=== PATIENT | male | born 1980 | race Caucasian/White ===

== ENCOUNTER 2022-12-17 22:27 | Emergency (ER) | payer SELFPAY ==
[~2022-12-17] VITALS: Ht 154.9 cm; Wt 92.5 kg
[2022-12-17 22:35] VITALS: BP 145/99; PULSE 71; RESP 18; TEMP 98; O2SAT 100
--- NOTE | 2022-12-17 22:40 | NUR ---
PT TAKEN TO BED 1
[2022-12-17 23:09] LABS: BASOPHILS # (AUTO) 0.1 K/uL (0.00-0.22); BASOPHILS % (AUTO) 0.8 % (0.0-2.0); EOSINOPHILS # (AUTO) 0.3 K/uL (0-0.4); HEMATOCRIT 40.1 % (36-52); HEMOGLOBIN 13.5 g/dL (12.0-18.0); LYMPHOCYTES # (AUTO) 2.7 K/uL (2.0-11.5); LYMPHOCYTES % (AUTO) 27.8 % (20.5-51.1); MEAN CORPUSCULAR HEMOGLOBIN 30 pg (27-31); MEAN CORPUSCULAR HGB CONC 34 g/dL (33-37); MEAN CORPUSCULAR VOLUME 89.2 fL (80-94); MONOCYTES # (AUTO) 0.8 K/uL (0.8-1.0); MONOCYTES % (AUTO) 8.3 % (1.7-9.3); NEUTROPHILS # (AUTO) 5.9 K/uL (1.8-7.7); NEUTROPHILS % (AUTO) 60.1 % (42.2-75.2); PLATELET COUNT (AUTO) 303 K/uL (140-450); WHITE BLOOD COUNT (AUTO) 9.8 K/uL (4.8-10.8)
[2022-12-17 23:20] LABS: ALBUMIN 3.6 g/dL (3.4-5.0); ANION GAP 13.6 (8-16); ASPARTATE AMINOTRANSFERASE 26 U/L (15-37); CARBON DIOXIDE 25.6 mmol/L (21-32); CHLORIDE 106 mmol/L (98-107); CREATININE 0.9 mg/dL (0.6-1.3); GFR ARICAN-AMERICAN 120 mL/min (>90); GLUCOSE 133 mg/dL (74-106); POTASSIUM 3.2 mmol/L (3.5-5.1); SODIUM SERUM 142 mmol/L (136-145); TOTAL BILIRUBIN 0.3 mg/dL (0.0-1.0); UREA NITROGEN, BLOOD 14 mg/dL (7-18)
--- NOTE | 2022-12-17 23:24 | NUR ---
Patient is a 42/M who came in due to several months history of left-sided chest pain radiating to left shoulder, 01/21, heaviness. Patient denies shortness of breath, fever/chills, abdominal pain, nausea/vomiting/diarrhea. PMHx: HTN NKA
--- NOTE | 2022-12-17 23:56 | NUR ---
DOMINICKD examining patient.
[2022-12-18 00:41] VITALS: BP 112/76; PULSE 76; RESP 18; TEMP 97.5; O2SAT 99
--- NOTE | 2022-12-18 00:41 | NUR ---
Patient discharged with v/s stable. Written and verbal after care instructions given and explained. Patient verbalized understanding. Ambulatory with steady gait. All questions addressed prior to discharge. Advised to follow up with PMD.
== END 2022-12-18 00:41 | disposition home or self-care (01) ==
LOC: MED 22:27
DX: R07.89 Other chest pain (principal)
CPT/HCPCS: 36415; 71045; 80053; 84484; 85025; 93005; 99285

== ENCOUNTER 2023-01-08 03:12 | Emergency (ER) | payer MEDICAID ==
[~2023-01-08] VITALS: Ht 165.1 cm; Wt 90.7 kg
[2023-01-08 03:12] VITALS: BP 137/80; PULSE 65; RESP 16; TEMP 98; O2SAT 98
[2023-01-08] MEDS ORDERED: LORazepam 1 MG TAB PO ONE (03:45)
[2023-01-08] MEDS ORDERED: ASPIRIN 325 MG TAB PO ONE (03:45)
[2023-01-08 04:00] LABS: BASOPHILS # (AUTO) 0.1 K/uL (0.00-0.22); BASOPHILS % (AUTO) 0.5 % (0.0-2.0); EOSINOPHILS # (AUTO) 0.5 K/uL (0-0.4); HEMATOCRIT 40.8 % (36-52); HEMOGLOBIN 13.8 g/dL (12.0-18.0); LYMPHOCYTES # (AUTO) 2.6 K/uL (2.0-11.5); MEAN CORPUSCULAR HEMOGLOBIN 30 pg (27-31); MEAN CORPUSCULAR HGB CONC 34 g/dL (33-37); MEAN CORPUSCULAR VOLUME 89.1 fL (80-94); MONOCYTES # (AUTO) 0.9 K/uL (0.8-1.0); NEUTROPHILS # (AUTO) 5.7 K/uL (1.8-7.7); NEUTROPHILS % (AUTO) 58.5 % (42.2-75.2); PLATELET COUNT (AUTO) 310 K/uL (140-450); RED BLOOD CELL COUNT(AUTO) 4.57 MIL/uL (4.20-6.10); RED CELL DISTRIBUTION WIDTH 13.6 % (11.6-13.7); WHITE BLOOD COUNT (AUTO) 9.8 K/uL (4.8-10.8)
[2023-01-08 04:23] LABS: ALANINE AMINOTRANSFERASE 37 U/L (12-78); ALBUMIN 3.3 g/dL (3.4-5.0); ALKALINE PHOSPHATASE 138 U/L (50-136); ASPARTATE AMINOTRANSFERASE 17 U/L (15-37); GFR ARICAN-AMERICAN 106 mL/min (>90); GFR NON ARICAN-AMERICAN 88 mL/min (>90); GLUCOSE 118 mg/dL (74-106); LIPASE 84 U/L (73-393); TOTAL BILIRUBIN 0.2 mg/dL (0.0-1.0); TOTAL PROTEIN, SERUM 6.7 g/dL (6.4-8.2); UREA NITROGEN, BLOOD 12 mg/dL (7-18)
[2023-01-08 04:26] LABS: ANION GAP 9.5 (8-16); CHLORIDE 106 mmol/L (98-107); POTASSIUM 3.5 mmol/L (3.5-5.1); SODIUM SERUM 139 mmol/L (136-145)
[2023-01-08 04:43] LABS: AMPHETAMINE, URINE NEGATIVE ng/ml (NEG <=1000); BARBITURATE, URINE NEGATIVE ng/ml (NEG <=200); BENZODIAZEPINE, URINE NEGATIVE ng/mL (NEG <=200); CANNABINOID, URINE NEGATIVE ng/mL (NEG <=50); COCAINE, URINE NEGATIVE ng/mL (NEG <=300); OPIATE, URINE NEGATIVE ng/mL (NEG <=2000); PHENCYCLIDINE SCREEN,URINE NEGATIVE ng/mL (NEG <=25)
[2023-01-08] MEDS ORDERED: NAPR-54 PO (05:33)
[2023-01-08] MEDS ORDERED: KETOROLAC 30 MG/ML VIAL IM ONE (05:35)
[2023-01-08 05:50] VITALS: BP 127/85; PULSE 76; RESP 20; TEMP 98; O2SAT 98
== END 2023-01-08 05:50 | disposition home or self-care (01) ==
LOC: MED 03:12
DX: R07.89 Other chest pain (principal); I10 Essential (primary) hypertension; Z79.899 Other long term (current) drug therapy
CPT/HCPCS: 36415; 71045; 80053; 80305; 83690; 84484; 85025; 93005; 96372; 99285; J1885

== ENCOUNTER 2023-01-30 19:29 | Emergency (ER) | payer MEDICAID ==
[~2023-01-30] VITALS: Ht 172.7 cm; Wt 90.7 kg
[~2023-01-30 19:29] MED LIST: NAPR-54 PO
[2023-01-30 20:01] VITALS: BP 144/103; PULSE 70; RESP 20; TEMP 98.3; O2SAT 98
[2023-01-31] MEDS ORDERED: ACET-10509 PO (06:29)
== END 2023-01-30 22:47 | disposition left against medical advice (07) ==
LOC: MED 19:29
DX: R07.9 Chest pain, unspecified (principal); Z53.21 Procedure and treatment not carried out due to patient leaving prior to being seen by health care provider
CPT/HCPCS: 93005; 99281

== ENCOUNTER 2023-01-31 01:35 | Emergency (ER) | payer MEDICAID ==
[~2023-01-31] VITALS: Ht 162.6 cm; Wt 90.7 kg
[2023-01-31 01:47] VITALS: BP 123/82; PULSE 71; RESP 18; TEMP 97.9; O2SAT 99
[2023-01-31 02:14] LABS: BASOPHILS # (AUTO) 0.1 K/uL (0.00-0.22); BASOPHILS % (AUTO) 0.7 % (0.0-2.0); EOSINOPHILS # (AUTO) 0.3 K/uL (0-0.4); EOSINOPHILS % (AUTO) 2.9 % (0.0-4.0); HEMOGLOBIN 14.6 g/dL (12.0-18.0); LYMPHOCYTES # (AUTO) 2.4 K/uL (2.0-11.5); LYMPHOCYTES % (AUTO) 21.1 % (20.5-51.1); MEAN CORPUSCULAR HEMOGLOBIN 30 pg (27-31); MEAN CORPUSCULAR HGB CONC 33 g/dL (33-37); MEAN CORPUSCULAR VOLUME 89.7 fL (80-94); MONOCYTES % (AUTO) 8.8 % (1.7-9.3); NEUTROPHILS # (AUTO) 7.5 K/uL (1.8-7.7); NEUTROPHILS % (AUTO) 66.5 % (42.2-75.2); PLATELET COUNT (AUTO) 325 K/uL (140-450); RED CELL DISTRIBUTION WIDTH 13.5 % (11.6-13.7); WHITE BLOOD COUNT (AUTO) 11.2 K/uL (4.8-10.8)
[2023-01-31 02:37] LABS: ALANINE AMINOTRANSFERASE 39 U/L (12-78); ALKALINE PHOSPHATASE 130 U/L (50-136); ANION GAP 13.2 (8-16); ASPARTATE AMINOTRANSFERASE 19 U/L (15-37); CARBON DIOXIDE 27.3 mmol/L (21-32); CHLORIDE 104 mmol/L (98-107); CREATININE 0.9 mg/dL (0.6-1.3); GFR ARICAN-AMERICAN 120 mL/min (>90); GFR NON ARICAN-AMERICAN 99 mL/min (>90); GLUCOSE 133 mg/dL (74-106); LIPASE 79 U/L (73-393); POTASSIUM 3.5 mmol/L (3.5-5.1); SODIUM SERUM 141 mmol/L (136-145); TOTAL BILIRUBIN 0.3 mg/dL (0.0-1.0); TOTAL PROTEIN, SERUM 7.7 g/dL (6.4-8.2); UREA NITROGEN, BLOOD 16 mg/dL (7-18)
[2023-01-31] MEDS ORDERED: ACET-10509 PO (06:29)
[2023-01-31] MEDS ORDERED: KETOROLAC 30 MG/ML VIAL IM ONE (06:30)
[2023-01-31 06:59] VITALS: O2SAT 99
[2023-01-31 07:00] VITALS: BP 131/89; PULSE 72; RESP 17
[2023-01-31 07:40] VITALS: O2SAT 98
== END 2023-01-31 09:04 | disposition home or self-care (01) ==
LOC: MED 01:35
DX: R07.9 Chest pain, unspecified (principal); I10 Essential (primary) hypertension; Z79.899 Other long term (current) drug therapy
CPT/HCPCS: 36415; 71045; 80053; 83690; 84484; 85025; 93005; 96372; 99285; J1885

== ENCOUNTER 2023-02-02 22:02 | Emergency (ER) | payer MEDICAID ==
[~2023-02-02] VITALS: Ht 160 cm; Wt 90.7 kg
[~2023-02-02 22:02] MED LIST changes: +ACET-10509 PO
[2023-02-02 22:15] VITALS: BP 135/71; PULSE 63; RESP 16; TEMP 97.4; O2SAT 98
[2023-02-02] MEDS ORDERED: KETOROLAC 30 MG/ML VIAL IM ONE (23:10)
[2023-02-02 23:27] VITALS: BP 135/71; PULSE 63; RESP 16; TEMP 97.4; O2SAT 98
== END 2023-02-02 23:27 | disposition home or self-care (01) ==
LOC: MED 22:02
DX: R07.89 Other chest pain (principal); I10 Essential (primary) hypertension; Z79.899 Other long term (current) drug therapy
CPT/HCPCS: 93005; 96372; 99283; J1885

== ENCOUNTER 2023-02-09 02:25 | Emergency (ER) | payer MEDICAID ==
[~2023-02-09] VITALS: Ht 162.6 cm; Wt 90.7 kg
[2023-02-09 02:40] VITALS: BP 149/85; PULSE 68; RESP 17; TEMP 98.1; O2SAT 97
[2023-02-09] MEDS ORDERED: KETOROLAC 30 MG/ML VIAL IM ONE (03:10)
[2023-02-09] MEDS ORDERED: LIDOCAINE 5% 1 EA PATCH TP ONE (03:30)
[2023-02-09] MEDS ORDERED: LID5T TP (03:42)
[2023-02-09] MEDS ORDERED: IBUP-2213 PO (03:42)
[2023-02-09 04:00] VITALS: BP 142/86; PULSE 64; RESP 16; TEMP 98.1; O2SAT 97
== END 2023-02-09 04:00 | disposition home or self-care (01) ==
LOC: MED 02:25
DX: R51.9 Headache, unspecified (principal); I10 Essential (primary) hypertension; Z79.899 Other long term (current) drug therapy
CPT/HCPCS: 96372; 99283; J1885

== ENCOUNTER 2023-06-18 10:50 | Emergency (ER) | payer MEDICAID ==
[~2023-06-18] VITALS: Ht 160 cm; Wt 93.0 kg
[~2023-06-18 10:50] MED LIST changes: +IBUP-2213 PO; +LID5T TP
[2023-06-18 11:04] VITALS: BP 121/71; PULSE 78; RESP 19; TEMP 98.4; O2SAT 98
[2023-06-18 11:20] VITALS: BP 121/71; PULSE 78; RESP 19; TEMP 98.4; O2SAT 98
[2023-06-18] MEDS: KETOROLAC 30 MG/ML VIAL IM ONE (11:26)
[2023-06-18] MEDS: ACETAMINOPHEN EXTRA STRENGTH 500 MG TAB PO ONE (11:27)
[2023-06-18] MEDS: MORPHINE SULFATE 4 MG/ML SYR IVP ONE (11:27)
[2023-06-18] MEDS: LIDOCAINE/EPI 1% 1:100000 20 ML VIAL INJ ONE (11:29)
== END 2023-06-18 15:11 | disposition home or self-care (01) ==
LOC: MED 10:50
DX: S61.211A Laceration without foreign body of left index finger without damage to nail, initial encounter (principal); S61.213A Laceration without foreign body of left middle finger without damage to nail, initial encounter; S61.215A Laceration without foreign body of left ring finger without damage to nail, initial encounter; I10 Essential (primary) hypertension; Z79.899 Other long term (current) drug therapy; Z79.1 Long term (current) use of non-steroidal anti-inflammatories (NSAID); Z79.2 Long term (current) use of antibiotics; W31.2XXA Contact with powered woodworking and forming machines, initial encounter; Y92.89 Other specified places as the place of occurrence of the external cause; Y93.89 Activity, other specified; Y99.8 Other external cause status
CPT/HCPCS: 12002; 73130; 96374; 96375; 99284; J1885; J2001; J2270

== ENCOUNTER 2023-06-25 15:46 | Emergency (ER) | payer MEDICAID ==
[~2023-06-25] VITALS: Ht 160 cm; Wt 92.5 kg
[2023-06-25 15:59] VITALS: BP 126/97; PULSE 97; RESP 18; TEMP 98.3; O2SAT 97
[2023-06-25] MEDS: KETOROLAC 30 MG/ML VIAL IM ONE (16:55)
[2023-06-25] MEDS ORDERED: NAPR-1704 PO (17:23)
[2023-06-25] MEDS ORDERED: CEPH-588 PO (17:23)
[2023-06-25] MEDS ORDERED: BACITRACIN OINT 500 UNITS/GM PKT TP ONE (17:33)
[2023-06-26] MEDS ORDERED: BACI-418 TP (12:48)
== END 2023-06-25 17:45 | disposition home or self-care (01) ==
LOC: MED 15:46
DX: M79.645 Pain in left finger(s) (principal); Z48.02 Encounter for removal of sutures; Z79.899 Other long term (current) drug therapy
CPT/HCPCS: 29130; 96372; 99283; J1885

== ENCOUNTER 2023-06-26 11:01 | Emergency (ER) | payer MEDICAID ==
[~2023-06-26] VITALS: Ht 160 cm; Wt 92.5 kg
[~2023-06-26 11:01] MED LIST changes: +CEPH-588 PO; +NAPR-1704 PO
[2023-06-26 11:15] VITALS: BP 146/90; PULSE 84; RESP 16; TEMP 97.3; O2SAT 98
[2023-06-26] MEDS ORDERED: KETOROLAC 30 MG/ML VIAL IM ONE (12:25)
[2023-06-26] MEDS ORDERED: BACI-418 TP (12:48)
== END 2023-06-26 13:15 | disposition home or self-care (01) ==
LOC: MED 11:01
DX: S61.211D Laceration without foreign body of left index finger without damage to nail, subsequent encounter (principal); S61.213D Laceration without foreign body of left middle finger without damage to nail, subsequent encounter; S61.215D Laceration without foreign body of left ring finger without damage to nail, subsequent encounter; Z48.00 Encounter for change or removal of nonsurgical wound dressing; I10 Essential (primary) hypertension; Z79.899 Other long term (current) drug therapy; X58.XXXD Exposure to other specified factors, subsequent encounter
CPT/HCPCS: 99282

== ENCOUNTER 2023-06-27 22:41 | Emergency (ER) | payer MEDICAID ==
[~2023-06-27] VITALS: Ht 160 cm; Wt 92.5 kg
[~2023-06-27 22:41] MED LIST changes: +BACI-418 TP
[2023-06-27 23:03] VITALS: BP 151/88; PULSE 73; RESP 16; TEMP 96.8; O2SAT 98
[2023-06-28 01:43] VITALS: BP 151/88; PULSE 73; RESP 16; TEMP 96.8; O2SAT 98
== END 2023-06-28 01:43 | disposition left against medical advice (07) ==
LOC: MED 22:41
DX: M79.645 Pain in left finger(s) (principal); Z53.21 Procedure and treatment not carried out due to patient leaving prior to being seen by health care provider
CPT/HCPCS: 93005; 99281

== ENCOUNTER 2024-01-30 00:15 | Emergency (ER) | payer MEDICAID, OTHER ==
[~2024-01-30] VITALS: Ht 160 cm; Wt 94.6 kg
[~2024-01-30 00:15] MED LIST changes: -ACET-10509 PO; +ACET500T99 PO; +NAPR-337 PO; -NAPR-54 PO
[2024-01-30 00:18] VITALS: BP 139/98; PULSE 72; RESP 18; TEMP 97.7; O2SAT 100
[2024-01-30 00:58] LABS: BASOPHILS # (AUTO) 0.1 K/uL (0.00-0.22); BASOPHILS % (AUTO) 0.8 % (0.0-2.0); EOSINOPHILS # (AUTO) 0.4 K/uL (0-0.4); EOSINOPHILS % (AUTO) 4.5 % (0.0-4.0); HEMATOCRIT 46.3 % (36-52); HEMOGLOBIN 15.9 g/dL (12.0-18.0); LYMPHOCYTES # (AUTO) 2.9 K/uL (2.0-11.5); LYMPHOCYTES % (AUTO) 30.2 % (20.5-51.1); MEAN CORPUSCULAR HEMOGLOBIN 31 pg (27-31); MEAN CORPUSCULAR HGB CONC 34 g/dL (33-37); MEAN CORPUSCULAR VOLUME 90.4 fL (80-94); MONOCYTES # (AUTO) 0.9 K/uL (0.8-1.0); MONOCYTES % (AUTO) 9.7 % (1.7-9.3); NEUTROPHILS # (AUTO) 5.2 K/uL (1.8-7.7); NEUTROPHILS % (AUTO) 54.8 % (42.2-75.2); PLATELET COUNT (AUTO) 303 K/uL (140-450); RED BLOOD CELL COUNT(AUTO) 5.12 MIL/uL (4.20-6.10); RED CELL DISTRIBUTION WIDTH 13.6 % (11.6-13.7); WHITE BLOOD COUNT (AUTO) 9.6 K/uL (4.8-10.8)
[2024-01-30 01:12] LABS: ANION GAP 11.3 (8-16); CALCIUM 8.8 mg/dL (8.5-10.1); CARBON DIOXIDE 30.5 mmol/L (21-32); CREATININE 0.9 mg/dL (0.6-1.3); INR 0.99 (0.8-1.2); PARTIAL THROMBOPLASTIN TIME 30.2 secs (22-35.6); POTASSIUM 3.8 mmol/L (3.5-5.1); PROTHROMBIN TIME 10.4 secs (10.8-13.4)
[2024-01-30 02:20] VITALS: BP 112/73; PULSE 61; RESP 12; TEMP 97.7; O2SAT 95
[2024-01-30] MEDS: KETOROLAC 30 MG/ML VIAL IM ONE (04:20)
== END 2024-01-30 04:57 | disposition home or self-care (01) ==
LOC: MED 00:15
DX: R07.89 Other chest pain (principal); R20.2 Paresthesia of skin; Z79.899 Other long term (current) drug therapy
CPT/HCPCS: 36415; 71045; 80048; 83880; 84484; 85025; 85610; 85730; 93005; 96372; 99285; J1885